=== PATIENT | male | born 1995 | race African-American/Black ===

== ENCOUNTER 2017-07-30 17:31 | Emergency (ER) | payer SELFPAY ==
[~2017-07-30] VITALS: Ht 170.2 cm; Wt 59.0 kg
[~2017-07-30 17:31] MED LIST: CLON2TAB
[2017-07-30] MEDS ORDERED: BACITRACIN ZINC OINT UDPKT TOP ONE (19:15)
[2017-07-30 20:40] VITALS: BP 103/55
== END 2017-07-30 20:51 | disposition home or self-care (01) ==
LOC: ER 17:45
DX: S61.25 Open bite of finger without damage to nail (principal); L03.011 Cellulitis of right finger; Y04.0XXS Assault by unarmed brawl or fight, sequela; X58.XXXS Exposure to other specified factors, sequela; Y93.89 Activity, other specified; Y99.8 Other external cause status; Y92.89 Other specified places as the place of occurrence of the external cause
CPT/HCPCS: 29130; 73140; 99284